=== PATIENT | female | born 1940 | race Hispanic/Latino ===

== ENCOUNTER 2017-03-22 09:12 | Outpatient (CLI) | payer MEDICARE, OTHER ==
[2017-03-22 11:24] LABS: Alanine Aminotransferase 15 units/L (7-56); Albumin 3.8 g/dL (3.9-5); Albumin/Globulin Ratio 0.9 %; Alkaline Phosphatase 78 units/L (35-129); Anion Gap 18 mmol/L; BUN/Creatinine Ratio 21.66; Blood Urea Nitrogen 13 mg/dL (7-17); Calcium 9.6 mg/dL (8.4-10.2); Carbon Dioxide 28 mmol/L (22-30); Cholesterol 200 mg/dL (50-199); Glucose 100 mg/dL (65-100); HDL Cholesterol 65 mg/dL (40-59); LDL Cholesterol,Direct 123 mg/dL (50-130); Potassium 4.6 mmol/L (3.6-5.0); Sodium 144 mmol/L (137-145); Total Protein 8.1 g/dL (6.3-8.2); Triglycerides 64 mg/dL (2-149); Uric Acid 4.2 mg/dL (3.5-7.6)
== END 2017-03-22 09:13 | disposition home or self-care (01) ==
LOC: LABHHL 09:12
PROVIDERS: ATTEND Internal Medicine
DX: I10 Essential (primary) hypertension (principal); J44.9 Chronic obstructive pulmonary disease, unspecified; J20.9 Acute bronchitis, unspecified; E78.2 Mixed hyperlipidemia; Z79.899 Other long term (current) drug therapy
CPT/HCPCS: 36415; 80053; 80061; 83036; 84550

== ENCOUNTER 2018-01-23 10:53 | Outpatient (CLI) | payer MEDICARE, OTHER ==
--- NOTE | 2018-01-23 11:31 | XRay Report ---
PA and lateral chest: SOB. The lungs are mildly hyperlucent and hyperinflated. The interstitial pattern is generally coarse bilaterally. There is tenting of the mid left hemidiaphragm most likely secondary to scar. There are no nodules nor infiltrates. The pleural surfaces are unremarkable. The heart is not enlarged and there is no vascular congestion. These findings appear unchanged compared to June 2016. Impression: Chronic lung disease. No acute finding suspected.
== END 2018-01-23 10:54 | disposition home or self-care (01) ==
LOC: XRAY 10:53
PROVIDERS: ATTEND Internal Medicine
DX: J43.0 Unilateral pulmonary emphysema [MacLeod's syndrome] (principal)
CPT/HCPCS: 71046

== ENCOUNTER 2018-09-08 07:48 | Outpatient (CLI) | payer MEDICARE, OTHER ==
[2018-09-08] MEDS ORDERED: XYLOCAINE TOPICAL 4% TP ONE (08:30)
[2018-09-08] MEDS ORDERED: SILVER NITRATE TP NR (08:45)
== END 2018-09-08 07:49 | disposition home or self-care (01) ==
LOC: WOUND 07:48
PROVIDERS: ATTEND Surgery
DX: S51.811D Laceration without foreign body of right forearm, subsequent encounter (principal); X58.XXXD Exposure to other specified factors, subsequent encounter

== ENCOUNTER 2018-09-15 08:48 | Outpatient (CLI) | payer MEDICARE, OTHER | END 2018-09-15 08:49 | disposition home or self-care (01) | LOC: WOUND 08:48 ==